=== PATIENT | male | born 1985 | race Caucasian/White ===

== ENCOUNTER 2017-04-02 17:01 | Emergency (ER) | payer SELFPAY ==
[2017-04-02 17:23] VITALS: BP 148/88
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
== END 2017-04-02 18:30 | disposition home or self-care (01) ==
LOC: UCEAST 17:01
DX: M79.604 Pain in right leg (principal); Z87.891 Personal history of nicotine dependence; V89.2XXA Person injured in unspecified motor-vehicle accident, traffic, initial encounter; Y92.9 Unspecified place or not applicable
CPT/HCPCS: 99212; G0463

== ENCOUNTER 2018-02-01 11:20 | Emergency (ER) | payer BC ==
[2018-02-01] MEDS ORDERED: cefTRIAXone VIAL(*) 250 MG VIAL IM ONE (12:19)
[2018-02-01] MEDS ORDERED: Lidocaine 1% MPF* 2 ML VIAL INJ ONE (12:19)
[2018-02-01] MEDS ORDERED: Azithromycin TAB* 250 MG PO ONE (12:19)
--- NOTE | 2018-02-01 12:23 | UC ---
Complaint Male HPI - HPI Summary HPI Summary: 32 yo male presents with multiple complaints 1) For about 2 months he has had a growth on his right palm. Mild TTP. No redness or drainage. 2) Over the last 3-4 weeks has noticed a small nodule on the inside of his LEFT index finger. not painful 3) Penile discharge. He tells me that about 3 weeks ago he had unprotected intercourse with a new female sexual partner. Over the last 3-4 days has noticed burning with urination and clear/yellow penile discharge. Has not had contact with this partner since that time and is unsure if she had any STD. Denies fever, chills, groin pain, testicular pain. - History of Current Complaint Chief Complaint: UCGU Stated Complaint: SOFT TISSUE COMPLAINT Time Seen by Provider: 02/01/18 11:38 Hx Obtained From: Patient Onset/Duration: Gradual Onset Severity Currently: None Pain Intensity: 0 - Allergies/Home Medications Allergies/Adverse Reactions: Allergies Allergy/AdvReac Type Severity Reaction Status Date / Time No Known Allergies Allergy Verified 02/01/18 11:24 Home Medications: Home Medications Bupropion XL* [Wellbutrin XL *] 150 mg PO DAILY 02/01/18 [History Confirmed ] Dextroamphetamine/Amphetamine [Adderall Xr 20 mg Capsule] 20 mg PO DAILY WITH MEAL 02/01/18 [History Confirmed 02/01/18] PMH/Surg Hx/FS Hx/Imm Hx Psychological History: Anxiety, Depression - Surgical History Surgical History: Yes Surgery Procedure, Year, and Place: fx left arm- surgical repair. fx femur left leg repair. right hip fx, surgical repair - Family History Known Family History: Positive: Diabetes - grandparents Negative: Cardiac Disease - Social History Occupation: Employed Full-time Lives: With Family Alcohol Use: Rare Substance Use Type: None Smoking Status (MU): Light Every Day Tobacco Smoker Type: Cigarettes Amount Used/How Often: 2 cig/week Length of Time of Smoking/Using Tobacco: 2+ years Review of Systems All Other Systems Reviewed And Are Negative: Yes Constitutional: Positive: Negative Skin: Positive: Other - Wart right hand Respiratory: Positive: Negative Cardiovascular: Positive: Negative Gastrointestinal: Positive: Negative Genitourinary: Positive: Vaginal/Penile Discharge Motor: Positive: Negative Neurovascular: Positive: Negative Musculoskeletal: Positive: Other: - Nodule left hand Neurological: Positive: Negative Psychological: Positive: Negative Physical Exam - Summary Physical Exam Summary: GENERAL: NAD. WDWN. No pain distress. SKIN: RIGHT HAND: Center of palm with 4mm wart 3mm depth. Mild TTP. No drainage , erythema, or streaking. CHEST: No accessory muscle use. Breathing comfortably and in no distress. CV: Pulses intact radial and ulnar. Cap refill <2seconds MSK: LEFT HAND: At volar aspect of the base of the index finger there is a 2mm nodule on the radial side. NTTP. All fingers FROM. Strength 5/5 including transport operations inspector strength. NEURO: Alert. Sensations intact hand and all fingers. PSYCH: Age appropriate behavior. Triage Information Reviewed: Yes Vital Signs: Initial Vital Signs Temp 97.8 F 02/01/18 11:25 Pulse 103 02/01/18 11:25 Resp 18 02/01/18 11:25 BP 157/11 02/01/18 11:25 Pulse Ox 99 02/01/18 11:25 Vital Signs Reviewed: Yes Male Genital Exam: Positive: Urethral Discharge - Scant white/yellow. Negative : Bleeding, Epididymal Tenderness, Erythema, Inguinal Tenderness, Lesions, Scrotum Tenderness (R), Scrotum Tenderness (L), Testicular Tenderness (R), Testicular Tenderness (L) Complaint Male Course/Dx - Course Course Of Treatment: 1) Regarding his right hand, I believe this is a viral wart and advised him to try OTC wart freeze. 2) Regarding his left index finger ; I believe this could represent a tendon nodule and advised pt to f/u with Orthopedics. He tells me that he is seeing Orthopedics tomorrow for a separate issue and will bring this up to them tomorrow. 3) His UA was positive for leuks and will be sent for GC/C. Given his history and exam, I recommended that the pt be treated for GC/C today. He was agreeable to this and was given 250mg Ceftriaxone IM and 1gm Azithromycin in the clinic. Advised to refrain from sexual activity for 1 week after his symptoms resolve. Will call with urine results. He declined further STD testing at this time. - Differential Dx/Diagnosis Provider Diagnosis: Viral wart, Nodule of tendon sheath, Penile discharge Discharge - Sign-Out/Discharge Documenting (check all that apply): Patient Departure All imaging exams completed and their final reports reviewed: No Studies - Discharge Plan Condition: Stable Disposition: HOME Patient Education Materials: Chlamydia (ED), Gonorrhea (ED), Plantar Wart (ED) Referrals: No Primary Care Phys,NOPCP [Primary Care Provider] - Additional Instructions: If you develop a fever, shortness of breath, chest pain, new or worsening symptoms - please call your PCP or go to the ED. Your blood pressure was high at todays visit. Please see your primary provider within 4 weeks for recheck and re-evaluation. 1) You were treated for Gonorrhea and Chlamydia today - we will have results of your testing in 2-3 days, if you have not heard from us, please call to ask about your results. Please refrain from sexual activity for 1 week AFTER your symptoms have resolved. 2) Regarding your hand nodules - please follow up with Orthopedics as I suspect one is a tendon nodule on your left hand and a viral skin wart on your right hand - Billing Disposition and Condition Condition: STABLE Disposition: Home
[2018-02-01] MEDS ORDERED: Lidocaine 1%* 5 ML VIAL ONE (12:27)
[2018-02-01 12:28] VITALS: BP 157/110
[2018-02-01] MEDS ORDERED: Lidocaine 1%* 5 ML VIAL INJ ONE (12:39)
== END 2018-02-01 12:40 | disposition home or self-care (01) ==
LOC: UCEAST 11:20
DX: B07.8 Other viral warts (principal); M67.88 Other specified disorders of synovium and tendon, other site; R36.9 Urethral discharge, unspecified; F17.210 Nicotine dependence, cigarettes, uncomplicated; F41.8 Other specified anxiety disorders
CPT/HCPCS: 81003; 87086; 87491; 87591; 96372; 99212; A9270-GY; G0463; J0696